=== PATIENT | male | born 1980 | race Caucasian/White ===

== ENCOUNTER 2023-12-06 03:23 | Emergency (ER) | payer OTHER ==
[~2023-12-06] VITALS: Ht 182.9 cm; Wt 137.0 kg
[2023-12-06 03:27] VITALS: O2SAT 99
[2023-12-06] MEDS ORDERED: NAPR-420 MT (04:07)
[2023-12-06] MEDS ORDERED: BACL-141 MT (04:07)
[2023-12-06] MEDS: ACETAMINOPHEN 325MG TABLET PO ONE (04:22)
[2023-12-06] MEDS: DEXAMETHASONE 10 MG/ML VIAL IM ONE (04:23)
[2023-12-06] MEDS: KETOROLAC 30MG/ML VIAL IM ONE (04:23)
[2023-12-06] MEDS: MORPHINE SULFATE 4 MG/ML INJ (FOR IV/IM USE) IM ONE (04:30)
[2023-12-06 05:02] VITALS: BP 110/64; PULSE 60; RESP 20; TEMP 36.61404; O2SAT 98
== END 2023-12-06 05:04 | disposition home or self-care (01) ==
LOC: ER 03:44
DX: M54.31 Sciatica, right side (principal); E11.9 Type 2 diabetes mellitus without complications; I10 Essential (primary) hypertension; Z13.9 Encounter for screening, unspecified
CPT/HCPCS: 99284; 96372; J1100; J1885; J2270